=== PATIENT | female | born 1965 | race Caucasian/White ===

== ENCOUNTER 2016-11-03 16:47 | Emergency (ER) | payer OTHER ==
[~2016-11-03] VITALS: Ht 165.1 cm; Wt 104.3 kg
[~2016-11-03 16:47] MED LIST: AMIT24CA5 PO; AMLO5TAB2 PO; CARI350T20 PO; DIAZ10TA2 PO; FISH120012 PO; FURO40TA2 PO; HYDR-2807 PO; POTA10TA34 PO; PROM12SU PR; SIMV40TA2 PO; VITA100L PO
[2016-11-03] MEDS ORDERED: PROM50TA2 PO (16:57)
[2016-11-03] MEDS ORDERED: PARO20TA3 PO (16:59)
[2016-11-03] MEDS ORDERED: CLEM2.68 PO (16:59)
[2016-11-03] MEDS ORDERED: PROMETHAZINE INJ 25 MG/ML VIAL (J2550) IV ONE (19:00)
[2016-11-03 19:50] LABS: BASO % 0.5 % (0.0-1.0); EOS # 0.2 K/mm3 (0.0-0.50); EOS % 2.4 % (0.0-3.0); LARGE UNSTAINED CELL # 0.1 K/mm3 (0.0-0.4); LARGE UNSTAINED CELL % 1.4 % (0.0-4.0); LYMPH # 2.6 K/mm3 (1.5-4.5); LYMPH % 32.3 % (24.0-44.0); MEAN CORPUSCULAR HEMOGLOBIN 30.9 pg (27.0-33.0); MEAN CORPUSCULAR HGB CONC 34.1 g/dl (32.0-36.5); MEAN CORPUSCULAR VOLUME 90.8 fl (80.0-96.0); MONO # 0.4 K/mm3 (0.0-0.8); MONO % 4.4 % (0.0-5.0); NEUTROPHILS # 4.8 K/mm3 (1.8-7.7); NEUTROPHILS % 59.1 % (36.0-66.0); PLATELET COUNT, AUTOMATED 156 k/mm3 (150-450); WHITE BLOOD COUNT 8.2 K/mm3 (4.0-10.0)
[2016-11-03] MEDS ORDERED: HYDROmorphone HCL 1 MG/ML SYRINGE (J1170) IV ONE (21:00)
[2016-11-03] MEDS ORDERED: NS 1,000 ML IV ONE (21:00)
[2016-11-03] MEDS ORDERED: amLODIPine 5 MG TAB PO ONE (21:45)
[2016-11-03] MEDS ORDERED: diazePAM 5 MG TAB PO ONE (21:45)
[2016-11-03 21:46] LABS: ALBUMIN 4.2 GM/DL (3.2-5.2); ALBUMIN/GLOBULIN RATIO 1.35 (1.00-1.93); ALKALINE PHOSPHATASE 78 U/L (45-117); ALT/SGPT 53 U/L (12-78); AMYLASE 42 U/L (25-115); ANION GAP 10 MEQ/L (8-16); AST/SGOT 33 U/L (15-37); BILIRUBIN,DIRECT 0.1 MG/DL (0.0-0.2); BILIRUBIN,TOTAL 0.3 MG/DL (0.2-1.0); BLOOD UREA NITROGEN 10 MG/DL (7-18); CALCIUM LEVEL 9.7 MG/DL (8.5-10.1); CARBON DIOXIDE LEVEL 26 MEQ/L (21-32); CHLORIDE LEVEL 109 MEQ/L (98-107); CREATININE FOR GFR 0.83 MG/DL (0.55-1.02); GLOMERULAR FILTRATION RATE > 60.0 (>51); GLUCOSE, FASTING 85 MG/DL (70-105); POTASSIUM SERUM 3.7 MEQ/L (3.5-5.1); SODIUM LEVEL 145 MEQ/L (136-145); TOTAL PROTEIN 7.3 GM/DL (6.4-8.2)
[2016-11-03] MEDS ORDERED: ISOVUE-370 76% 100ML VIAL (Q9967) As Ordered ONE (21:54)
[2016-11-03 21:55] VITALS: BP 196/94
--- NOTE | 2016-11-03 22:50 | REPUSA ---
CLINICAL HISTORY: Abdominal pain TECHNIQUE : A CT of the abdomen and pelvis was performed following the administration of oral and int ravenous contrast from the level of the heart to the proximal femoral diaphyses. Multiplanar reformat s were also obtained in coronal and sagittal projections. COMPARISON: None FINDINGS: LOWER CHEST: The lung bases are clear. Heart is normal in size. No pleural or pericardial effusion is seen. LIVER: The liver measures 22 cm with smooth contours and fatty changes. No lesions identified. Visual ized portal and hepatic patent. BILIARY SYSTEM: No intrahepatic biliary ductal dilatation is seen. The common duct is normal in calib er. The gallbladder is unremarkable with no focal or diffuse wall thickening seen. No pericholecystic fluid is seen. No calcified biliary calculi are identified. PANCREAS: The pancreas is normal in size, contour and density. No solid or cystic pancreatic mass is seen. No pancreatic duct dilatation is seen. SPLEEN: The spleen is normal in size and without focal lesion. ADRENALS: The adrenal glands are unremarkable. KIDNEYS/URETERS: The kidneys are normal in size and enhance normally. No calcified renal or ureteral calculi are seen. No suspicious renal mass or hydronephrosis is seen. The ureters are not dilated. URINARY BLADDER: The urinary bladder is unremarkable without calcified stone, wall thickening or dive rticula seen. UTERUS/ADNEXA: Within normal size limits with no suspicious lesion. AORTA AND ILIAC ARTERIES: No aneurysmal dilatation of the aorta or iliac arteries is seen. LYMPH NODES: No enlarged adenopathy. GASTROINTESTINAL: Sigmoid diverticulosis without evidence for acute diverticulitis. Stomach, duodenum , appendix on axial series 20 on images [id number] and remaining bowel normal in caliber with no abnorma l dilatation, stenosis, or wall thickening. PERITONEUM/RETROPERITONEUM: No ascites or suspicious fluid collection, extraluminal air, or suspiciou s mass. ABDOMINAL/PELVIC WALL: No hernia is identified. OSSEOUS STRUCTURES/SOFT TISSUES: No suspicious osseous lesion, acute fracture, or soft tissue abnorma lity. 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 IMPRESSION : Hepatomegaly with steatosis otherwise no other acute intra-abdominal pelvic abnormality identified.
[2016-11-03 22:58] VITALS: BP 172/94
== END 2016-11-03 23:23 | disposition home or self-care (01) ==
LOC: M ED 18:28
DX: R10.84 Generalized abdominal pain (principal); I10 Essential (primary) hypertension; E78.00 Pure hypercholesterolemia, unspecified; K57.30 Diverticulosis of large intestine without perforation or abscess without bleeding; K44.9 Diaphragmatic hernia without obstruction or gangrene; K21.9 Gastro-esophageal reflux disease without esophagitis; F32.9 Major depressive disorder, single episode, unspecified; F17.210 Nicotine dependence, cigarettes, uncomplicated
CPT/HCPCS: 36415; 74177; 80048; 80076; 81001; 82150; 83690; 85025; 85610; 86850; 86900; 86901; 93041; 96374; 96375; 99284; J1170; Q9967